=== PATIENT | male | born 1950 | race Caucasian/White ===

== ENCOUNTER 2022-04-29 08:43 | Inpatient (IN) ==
[2022-04-29] MEDS ORDERED: ONDANSETRON 4 MG/2 ML VIAL IV STA (09:11)
[2022-04-29] MEDS ORDERED: SODIUM CHLORIDE 0.9% 1,000 ML IV STA (09:11)
[2022-04-29] MEDS ORDERED: HYDROmorphone 1 MG/1 ML SYRINGE IV STA (09:11)
[2022-04-29 09:41] LABS: Basophils % 0.5 % (0.0-0.8); Eosinophils % 0.3 % (0.00-10.9); Hematocrit 23.3 VOL% (42.0-52.0); Hemoglobin 6.8 GM/DL (14.0-18.0); Immature Granulocytes % 0.5 %; Immature Granulocytes Absolute 0.03 #; Lymphocytes # 0.6 10*3/uL (1.4-4.0); Lymphocytes % 9.4 % (21.2-54.2); Mean Corpuscular HGB Conc 29.2 GM/DL (32-36); Mean Corpuscular Volume 103.6 FL (87-102); Mean Platelet Volume 9.7 FL (9.6-12.0); Monocytes # 0.3 10*3/uL (0.11-0.8); Monocytes % 4.9 % (1.7-12.7); Neutrophils % 84.4 % (38.7-73.9); Platelet Count 100 T/CUMM (130-400); Red Blood Count 2.25 MC/CUMM (3.8-5.5); White Blood Count 5.9 T/CUMM (4-12)
[2022-04-29 09:49] LABS: Alanine Aminotransferase 15 U/L (16-61); Albumin 2.6 G/DL (3.4-5.0); Alkaline Phosphatase 99 U/L (45-117); Aspartate Amino Transferase 15 U/L (0-37); Bilirubin,Total < 0.39 MG/DL (0.20-1.00); Blood Urea Nitrogen 38 MG/DL (7-18); Calcium 7.7 MG/DL (8.5-10.1); Carbon Dioxide 19 MMOL/L (21-32); Chloride 114 MMOL/L (98-107); Glucose 77 MG/DL (74-106); Osmolality,Calculated 284.5 MOS/KG (273-304); Potassium 5.4 MMOL/L (3.5-5.1); Sodium 139 MMOL/L (136-145); Total Protein 5.5 G/DL (6.4-8.2)
[2022-04-29 09:53] LABS: INR 1.1; PT Patient Result 11.8 SECS (10.5-12.0); Partial Thromboplastin Time 29.4 SECS (23.8-32.1)
[2022-04-29] MEDS ORDERED: GLUCAGON 1 MG VIAL IM PRN (09:57)
[2022-04-29] MEDS ORDERED: NICOTINE 21 MG/24 HR PATCH TRANSDERM PRN (09:58)
[2022-04-29] MEDS ORDERED: traZODone 50 MG TABLET PO PRN (09:58)
[2022-04-29] MEDS ORDERED: BISACODYL 5 MG TABLET PO PRN (09:58)
[2022-04-29] MEDS ORDERED: hydrALAZINE 20 MG/1 ML VIAL IV PRN (09:58)
[2022-04-29] MEDS ORDERED: PROMETHAZINE 25 MG/1 ML VIAL IM PRN (09:58)
[2022-04-29] MEDS ORDERED: SODIUM CHLORIDE 0.9% 1,000 ML IV PRN (10:01)
[2022-04-29] MEDS ORDERED: SIMETHICONE CHEW 80 MG TABLET PO PRN (10:02)
[2022-04-29 10:29] LABS: Free T4 (Free Thyroxine) 1.07 NG/DL (0.76-1.46); Thyroid Stimulating Hormone 3.39 uIU/ml (0.358-3.74)
[2022-04-29 10:54] LABS: Bacteria,Urine Occasional /HPF (Few)
[2022-04-29 10:55] LABS: Bilirubin,Urine Negative (Negative); Blood, Urine Trace mg/dL (Negative); Glucose,Urine (UA) Negative (Negative); Ketones,Urine Negative (Negative); Nitrite,Urine Negative (Negative); Protein,Urine 100 mg/dL (Negative); Urine Appearance Clear (Clear); Urine Color Yellow (Yellow); Urine Specific Gravity 1.025 (1.001-1.035); Urine Urobilinogen 0.2 eU/dL (<2.0); Urine pH 5.5 (4.5-8.0)
[2022-04-29] MEDS ORDERED: DEXTROSE 10% 250 ML BAG IV PRN (11:06)
[2022-04-29 11:31] LABS: Folate 7.94 NG/ML (5.38-24.0)
[2022-04-29] MEDS: SODIUM CHLORIDE 0.9% 1,000 ML IV SCH ×2 (12:20→21:29)
[2022-04-29] MEDS: ALBUTEROL/IPRATROPIUM 3 ML NEB RESP TX SCH ×2 (13:02→19:35)
[2022-04-29] MEDS: PANTOPRAZOLE 40 MG TABLET PO SCH (13:17)
[2022-04-29] MEDS: SODIUM BICARBONATE 650 MG TABLET PO SCH ×2 (13:18→21:27)
[2022-04-29] MEDS: SODIUM ZIRCONIUM CYCLOSILICATE 10 GM PACK PO SCH (13:18)
[2022-04-29] MEDS: ONDANSETRON 4 MG/2 ML VIAL IV PRN (13:38)
[2022-04-29] MEDS: HYDROmorphone 1 MG/1 ML SYRINGE IV PRN ×2 (13:38→17:36)
[2022-04-29] MEDS: ERGOCALCIFEROL 50,000 UNIT CAPSULE PO SCH (16:45)
[2022-04-29] MEDS ORDERED: fentaNYL 25 MCG/HR PATCH TRANSDERM SCH (17:00)
[2022-04-29] MEDS ORDERED: NON-FORMULARY MEDICATION (Budesonide-Glycopyr-Formoterol [Breztri Aerosphere] 160-9-4.8 mc INH SCH (21:00)
[2022-04-29] MEDS: levETIRAcetam 500 MG TABLET PO SCH (21:27)
[2022-04-29] MEDS: DOCUSATE SODIUM 100 MG CAPSULE PO SCH (21:27)
[2022-04-29] MEDS: SENNA 8.6 MG TABLET PO SCH (21:27)
[2022-04-29] MEDS: ZALEPLON 5 MG CAPSULE PO PRN (21:27)
[2022-04-30] MEDS: ALBUTEROL/IPRATROPIUM 3 ML NEB RESP TX SCH ×4 (00:55→20:23)
[2022-04-30] MEDS: SODIUM CHLORIDE 0.9% 1,000 ML IV SCH (05:26)
[2022-04-30] MEDS: HYDROmorphone 1 MG/1 ML SYRINGE IV PRN ×3 (05:28→19:47)
[2022-04-30 05:42] LABS: Basophils % 0.3 % (0.0-0.8); Eosinophils % 0.1 % (0.00-10.9); Hematocrit 33.7 VOL% (42.0-52.0); Hemoglobin 10.4 GM/DL (14.0-18.0); Immature Granulocytes % 0.9 %; Immature Granulocytes Absolute 0.08 #; Lymphocytes # 0.8 10*3/uL (1.4-4.0); Lymphocytes % 8.7 % (21.2-54.2); Mean Corpuscular HGB Conc 30.9 GM/DL (32-36); Mean Corpuscular Volume 97.1 FL (87-102); Mean Platelet Volume 10.1 FL (9.6-12.0); Monocytes # 0.5 10*3/uL (0.11-0.8); Monocytes % 5.4 % (1.7-12.7); Neutrophils % 84.6 % (38.7-73.9); Platelet Count 105 T/CUMM (130-400); Red Blood Count 3.47 MC/CUMM (3.8-5.5); Red Cell Distribution Width 20.2 % (9.3-17.3); White Blood Count 9.4 T/CUMM (4-12)
[2022-04-30 05:55] LABS: Osmolality,Calculated 289.3 MOS/KG (273-304); Potassium 5.6 MMOL/L (3.5-5.1)
[2022-04-30] MEDS ORDERED: VANCOMYCIN INJ 1,000 MG in SODIUM CHLORIDE 0.9% 250 ML IV ONE (06:00)
[2022-04-30] MEDS: levETIRAcetam 500 MG TABLET PO SCH ×2 (08:47→20:02)
[2022-04-30] MEDS: SODIUM ZIRCONIUM CYCLOSILICATE 10 GM PACK PO SCH (08:47)
[2022-04-30] MEDS: CITALOPRAM 40 MG TABLET PO SCH (08:53)
[2022-04-30] MEDS: SENNA 8.6 MG TABLET PO SCH ×2 (08:54→20:02)
[2022-04-30] MEDS: PANTOPRAZOLE 40 MG TABLET PO SCH (08:54)
[2022-04-30] MEDS: DOCUSATE SODIUM 100 MG CAPSULE PO SCH ×2 (08:54→20:02)
[2022-04-30] MEDS: SODIUM BICARBONATE 650 MG TABLET PO SCH ×2 (08:57→20:02)
[2022-04-30] MEDS ORDERED: cloNIDine 0.2 MG/24 HR PATCH TRANSDERM SCH (09:00)
[2022-04-30] MEDS ORDERED: POLYETHYLENE GLYCOL POWDER 17 GM PACK PO SCH (09:00)
[2022-04-30] MEDS ORDERED: INSULIN REGULAR 10 UNIT, CALCIUM GLUCONATE 1,000 MG in DEXTROSE 10% 250 ML IV ONE ×2 (09:15→13:19)
[2022-04-30] MEDS: SODIUM BICARB INJ 100 MEQ in DEXTROSE 5% 1,000 ML IV SCH ×2 (10:35→23:35)
[2022-04-30 11:28] LABS: Calcium 7.9 MG/DL (8.5-10.1); Osmolality,Calculated 289.1 MOS/KG (273-304); Potassium 5.3 MMOL/L (3.5-5.1)
[2022-04-30] MEDS ORDERED: buprenorphine HCL 0.3 MG/ML VIAL ONE (12:22)
[2022-04-30] MEDS ORDERED: SODIUM CHLORIDE 0.9% 100 ML IV ONE (12:31)
[2022-04-30] MEDS ORDERED: MIDAZOLAM 2 MG/2 ML VIAL ONE (12:31)
[2022-04-30] MEDS ORDERED: fentaNYL 100 MCG/2 ML VIAL ONE (12:31)
[2022-04-30] MEDS ORDERED: propofoL 200 MG/20 ML VIAL IV ONE (12:31)
[2022-04-30] MEDS ORDERED: ROPIVACAINE 0.5% 30 ML VIAL ONE (12:33)
[2022-04-30] MEDS ORDERED: PHENYLEPHRINE 10 MG/1 ML VIAL IV ONE (13:48)
[2022-04-30] MEDS ORDERED: BUPIVACAINE SPINAL 0.75% 2 ML AMP SPINAL ONE (14:05)
[2022-04-30] MEDS ORDERED: SODIUM CHLORIDE 0.9% 200 ML IV ONE (14:05)
[2022-04-30] MEDS ORDERED: TRANEXAMIC ACID 1,000 MG/10 ML VIAL ONE (14:05)
[2022-04-30] MEDS ORDERED: BACITRACIN OINT 0.9 GM PACK TOP ONE (14:26)
[2022-04-30] MEDS ORDERED: MAGNESIUM HYDROXIDE SUSP 30 ML UDCUP PO PRN (14:47)
[2022-04-30] MEDS: fentaNYL 12 MCG/HR PATCH TRANSDERM SCH (19:54)
[2022-04-30] MEDS: ZALEPLON 5 MG CAPSULE PO PRN (21:48)
[2022-05-01] MEDS: ALBUTEROL/IPRATROPIUM 3 ML NEB RESP TX SCH ×4 (00:45→19:12)
[2022-05-01 05:33] LABS: Basophils % 0.4 % (0.0-0.8); Eosinophils % 0.2 % (0.00-10.9); Hematocrit 29.8 VOL% (42.0-52.0); Immature Granulocytes % 0.4 %; Immature Granulocytes Absolute 0.02 #; Lymphocytes # 0.4 10*3/uL (1.4-4.0); Lymphocytes % 8.2 % (21.2-54.2); Mean Corpuscular HGB Conc 30.2 GM/DL (32-36); Mean Corpuscular Volume 96.1 FL (87-102); Mean Platelet Volume 10.5 FL (9.6-12.0); Monocytes # 0.3 10*3/uL (0.11-0.8); Monocytes % 5.7 % (1.7-12.7); Neutrophils % 85.1 % (38.7-73.9); Platelet Count 90 T/CUMM (130-400); Red Cell Distribution Width 18.6 % (9.3-17.3); White Blood Count 5.3 T/CUMM (4-12)
[2022-05-01 05:43] LABS: Calcium 7.5 MG/DL (8.5-10.1); Osmolality,Calculated 287.7 MOS/KG (273-304); Potassium 4.5 MMOL/L (3.5-5.1)
[2022-05-01 05:54] LABS: Lymphocytes 7 % (20-55); Platelet Estimate Decreased; Total Cells Counted 100
[2022-05-01] MEDS ORDERED: fentaNYL 25 MCG/HR PATCH TRANSDERM SCH (09:00)
[2022-05-01] MEDS: PANTOPRAZOLE 40 MG TABLET PO SCH (09:19)
[2022-05-01] MEDS: levETIRAcetam 500 MG TABLET PO SCH ×2 (09:19→21:43)
[2022-05-01] MEDS: DOCUSATE SODIUM 100 MG CAPSULE PO SCH ×2 (09:19→21:42)
[2022-05-01] MEDS: SODIUM BICARBONATE 650 MG TABLET PO SCH ×2 (09:19→21:43)
[2022-05-01] MEDS: CITALOPRAM 40 MG TABLET PO SCH (09:19)
[2022-05-01] MEDS: SENNA 8.6 MG TABLET PO SCH ×2 (09:19→21:43)
[2022-05-01] MEDS: HYDROmorphone 1 MG/1 ML SYRINGE IV PRN (09:19)
[2022-05-01] MEDS: SODIUM ZIRCONIUM CYCLOSILICATE 10 GM PACK PO SCH (09:19)
[2022-05-01] MEDS: ONDANSETRON 4 MG/2 ML VIAL IV PRN (11:44)
[2022-05-01] MEDS: SODIUM BICARB INJ 100 MEQ in DEXTROSE 5% 1,000 ML IV SCH ×2 (17:55→19:17)
[2022-05-01] MEDS ORDERED: TUBERCULIN SKIN TEST 0.1 ML SYRINGE INTRADERM ONE (20:44)
[2022-05-02] MEDS: ALBUTEROL/IPRATROPIUM 3 ML NEB RESP TX SCH ×4 (00:07→19:55)
[2022-05-02 04:43] LABS: Basophils % 0.3 % (0.0-0.8); Eosinophils # 0.1 10*3/uL (0.0-0.87); Eosinophils % 2.1 % (0.00-10.9); Hematocrit 23.9 VOL% (42.0-52.0); Hemoglobin 7.5 GM/DL (14.0-18.0); Immature Granulocytes % 0.5 %; Immature Granulocytes Absolute 0.02 #; Lymphocytes # 0.5 10*3/uL (1.4-4.0); Lymphocytes % 11.6 % (21.2-54.2); Mean Corpuscular HGB Conc 31.4 GM/DL (32-36); Mean Corpuscular Volume 94.1 FL (87-102); Mean Platelet Volume 9.9 FL (9.6-12.0); Monocytes # 0.2 10*3/uL (0.11-0.8); Monocytes % 5.4 % (1.7-12.7); Neutrophils % 80.1 % (38.7-73.9); Platelet Count 79 T/CUMM (130-400); Red Blood Count 2.54 MC/CUMM (3.8-5.5); Red Cell Distribution Width 17.8 % (9.3-17.3); White Blood Count 3.9 T/CUMM (4-12)
[2022-05-02 05:06] LABS: Platelet Estimate Decreased
[2022-05-02] MEDS ORDERED: SODIUM CHLORIDE 0.9% 1,000 ML IV PRN (07:23)
[2022-05-02] MEDS: ONDANSETRON 4 MG/2 ML VIAL IV PRN (08:44)
[2022-05-02] MEDS: SODIUM BICARB INJ 100 MEQ in DEXTROSE 5% 1,000 ML IV SCH (08:49)
[2022-05-02] MEDS: CITALOPRAM 40 MG TABLET PO SCH (09:57)
[2022-05-02] MEDS: DOCUSATE SODIUM 100 MG CAPSULE PO SCH ×2 (09:57→21:22)
[2022-05-02] MEDS: SODIUM ZIRCONIUM CYCLOSILICATE 10 GM PACK PO SCH (09:58)
[2022-05-02] MEDS: levETIRAcetam 500 MG TABLET PO SCH ×2 (09:58→21:22)
[2022-05-02] MEDS: PANTOPRAZOLE 40 MG TABLET PO SCH (09:58)
[2022-05-02] MEDS: SENNA 8.6 MG TABLET PO SCH ×2 (09:58→21:22)
[2022-05-02] MEDS: SODIUM BICARBONATE 650 MG TABLET PO SCH ×2 (09:59→21:22)
[2022-05-02] MEDS: HYDROmorphone 1 MG/1 ML SYRINGE IV PRN (21:24)
[2022-05-02 21:36] LABS: Hematocrit 30.2 VOL% (42.0-52.0); Hemoglobin 9.5 GM/DL (14.0-18.0)
[2022-05-03] MEDS: ALBUTEROL/IPRATROPIUM 3 ML NEB RESP TX SCH ×4 (00:24→20:36)
[2022-05-03] MEDS: HYDROmorphone 1 MG/1 ML SYRINGE IV PRN ×2 (04:19→20:42)
[2022-05-03] MEDS: SODIUM BICARB INJ 100 MEQ in DEXTROSE 5% 1,000 ML IV SCH ×3 (04:45→15:19)
[2022-05-03] MEDS ORDERED: SODIUM PHOSPHATE ENEMA 133 ML BOTTLE RECTAL ONE (05:00)
[2022-05-03 05:50] LABS: Basophils % 0.4 % (0.0-0.8); Eosinophils # 0.1 10*3/uL (0.0-0.87); Eosinophils % 2.1 % (0.00-10.9); Hematocrit 30.3 VOL% (42.0-52.0); Hemoglobin 9.6 GM/DL (14.0-18.0); Immature Granulocytes % 0.6 %; Immature Granulocytes Absolute 0.03 #; Lymphocytes # 0.6 10*3/uL (1.4-4.0); Lymphocytes % 13.2 % (21.2-54.2); Mean Corpuscular HGB Conc 31.7 GM/DL (32-36); Mean Corpuscular Volume 92.1 FL (87-102); Monocytes # 0.3 10*3/uL (0.11-0.8); Monocytes % 6.2 % (1.7-12.7); Neutrophils % 77.5 % (38.7-73.9); Platelet Count 101 T/CUMM (130-400); Red Blood Count 3.29 MC/CUMM (3.8-5.5); Red Cell Distribution Width 18.8 % (9.3-17.3); White Blood Count 4.7 T/CUMM (4-12)
[2022-05-03] MEDS: ONDANSETRON 4 MG/2 ML VIAL IV PRN (09:19)
[2022-05-03] MEDS: DOCUSATE SODIUM 100 MG CAPSULE PO SCH ×2 (09:23→20:41)
[2022-05-03] MEDS: PANTOPRAZOLE 40 MG TABLET PO SCH (09:23)
[2022-05-03] MEDS: SENNA 8.6 MG TABLET PO SCH ×2 (09:23→20:41)
[2022-05-03] MEDS: SODIUM BICARBONATE 650 MG TABLET PO SCH ×2 (09:23→20:40)
[2022-05-03] MEDS: CITALOPRAM 40 MG TABLET PO SCH (09:23)
[2022-05-03] MEDS: SODIUM ZIRCONIUM CYCLOSILICATE 10 GM PACK PO SCH (09:23)
[2022-05-03] MEDS: levETIRAcetam 500 MG TABLET PO SCH ×2 (09:23→20:41)
[2022-05-03] MEDS: fentaNYL 12 MCG/HR PATCH TRANSDERM SCH (09:24)
[2022-05-03] MEDS: ZALEPLON 5 MG CAPSULE PO PRN (20:41)
[2022-05-04] MEDS: ALBUTEROL/IPRATROPIUM 3 ML NEB RESP TX SCH ×4 (01:21→19:05)
[2022-05-04 05:03] LABS: Calcium 7.4 MG/DL (8.5-10.1); Osmolality,Calculated 283.7 MOS/KG (273-304)
[2022-05-04] MEDS: SODIUM BICARB INJ 100 MEQ in DEXTROSE 5% 1,000 ML IV SCH (05:38)
[2022-05-04] MEDS: SODIUM ZIRCONIUM CYCLOSILICATE 10 GM PACK PO SCH (09:28)
[2022-05-04] MEDS: SODIUM BICARBONATE 650 MG TABLET PO SCH ×2 (09:29→20:37)
[2022-05-04] MEDS: DOCUSATE SODIUM 100 MG CAPSULE PO SCH ×2 (09:29→20:38)
[2022-05-04] MEDS: CITALOPRAM 40 MG TABLET PO SCH (09:29)
[2022-05-04] MEDS: SENNA 8.6 MG TABLET PO SCH ×2 (09:29→20:38)
[2022-05-04] MEDS: PANTOPRAZOLE 40 MG TABLET PO SCH (09:29)
[2022-05-04] MEDS: levETIRAcetam 500 MG TABLET PO SCH ×2 (09:30→20:38)
[2022-05-04] MEDS: HYOSCYAMINE 0.125 MG TABLET PO PRN ×2 (11:23→18:40)
[2022-05-04] MEDS: CALCIUM (CARBONATE) 500 MG TABLET PO SCH (20:38)
[2022-05-04] MEDS: ZALEPLON 5 MG CAPSULE PO PRN (20:38)
[2022-05-05] MEDS: ALBUTEROL/IPRATROPIUM 3 ML NEB RESP TX SCH ×4 (00:13→19:44)
[2022-05-05] MEDS: HYOSCYAMINE 0.125 MG TABLET PO PRN ×3 (04:38→16:44)
[2022-05-05 04:51] LABS: Basophils % 0.5 % (0.0-0.8); Eosinophils # 0.1 10*3/uL (0.0-0.87); Eosinophils % 2.6 % (0.00-10.9); Hematocrit 28.8 VOL% (42.0-52.0); Hemoglobin 9.1 GM/DL (14.0-18.0); Immature Granulocytes % 0.5 %; Immature Granulocytes Absolute 0.02 #; Lymphocytes # 0.6 10*3/uL (1.4-4.0); Lymphocytes % 16.6 % (21.2-54.2); Mean Corpuscular HGB Conc 31.6 GM/DL (32-36); Mean Corpuscular Volume 90.3 FL (87-102); Mean Platelet Volume 10.5 FL (9.6-12.0); Monocytes # 0.4 10*3/uL (0.11-0.8); Monocytes % 9.9 % (1.7-12.7); Neutrophils % 69.9 % (38.7-73.9); Platelet Count 119 T/CUMM (130-400); Red Blood Count 3.19 MC/CUMM (3.8-5.5); Red Cell Distribution Width 17.2 % (9.3-17.3); White Blood Count 3.9 T/CUMM (4-12)
[2022-05-05 05:10] LABS: Calcium 7.5 MG/DL (8.5-10.1); Osmolality,Calculated 286.5 MOS/KG (273-304); Potassium 3.8 MMOL/L (3.5-5.1)
[2022-05-05] MEDS: SODIUM ZIRCONIUM CYCLOSILICATE 10 GM PACK PO SCH (10:07)
[2022-05-05] MEDS: PANTOPRAZOLE 40 MG TABLET PO SCH (10:08)
[2022-05-05] MEDS: CALCIUM (CARBONATE) 500 MG TABLET PO SCH ×2 (10:08→21:05)
[2022-05-05] MEDS: SENNA 8.6 MG TABLET PO SCH ×2 (10:08→21:05)
[2022-05-05] MEDS: SODIUM BICARBONATE 650 MG TABLET PO SCH ×2 (10:08→21:04)
[2022-05-05] MEDS: CITALOPRAM 40 MG TABLET PO SCH (10:08)
[2022-05-05] MEDS: levETIRAcetam 500 MG TABLET PO SCH ×2 (10:09→21:04)
[2022-05-05] MEDS: DOCUSATE SODIUM 100 MG CAPSULE PO SCH ×2 (10:09→21:05)
[2022-05-05] MEDS: ACETAMINOPHEN 325 MG TABLET PO PRN (16:55)
[2022-05-05] MEDS ORDERED: fentaNYL 25 MCG/HR PATCH TRANSDERM SCH (17:00)
[2022-05-05] MEDS: oxyCODONE/ACETAMINOPHEN 5-325 MG TABLET PO PRN (17:57)
[2022-05-06] MEDS: ALBUTEROL/IPRATROPIUM 3 ML NEB RESP TX SCH ×2 (00:11→07:53)
[2022-05-06] MEDS: oxyCODONE/ACETAMINOPHEN 5-325 MG TABLET PO PRN ×2 (02:53→09:05)
[2022-05-06] MEDS: DOCUSATE SODIUM 100 MG CAPSULE PO SCH (09:04)
[2022-05-06] MEDS: SODIUM BICARBONATE 650 MG TABLET PO SCH (09:04)
[2022-05-06] MEDS: SENNA 8.6 MG TABLET PO SCH (09:04)
[2022-05-06] MEDS: PANTOPRAZOLE 40 MG TABLET PO SCH (09:04)
[2022-05-06] MEDS: SODIUM ZIRCONIUM CYCLOSILICATE 10 GM PACK PO SCH (09:04)
[2022-05-06] MEDS: CALCIUM (CARBONATE) 500 MG TABLET PO SCH (09:05)
[2022-05-06] MEDS: CITALOPRAM 40 MG TABLET PO SCH (09:05)
[2022-05-06] MEDS: ERGOCALCIFEROL 50,000 UNIT CAPSULE PO SCH (09:05)
[2022-05-06] MEDS: levETIRAcetam 500 MG TABLET PO SCH (09:05)
[2022-05-06] MEDS: HYOSCYAMINE 0.125 MG TABLET PO PRN (09:07)
[2022-05-06] MEDS: ACETAMINOPHEN 325 MG TABLET PO PRN (12:11)
[2022-05-06 12:15] VITALS: BP 166/94
== END 2022-05-06 13:28 | disposition hospice, home (50) | DRG 470 ==
LOC: N.ED 08:43 → N.3E 09:57 → SUATTDRO 09:57 → N.3E 15:57
PROVIDERS: ADMIT Internal Medicine; ATTEND Internal Medicine